=== PATIENT | female | born 1935 | race Caucasian/White ===

== ENCOUNTER 2016-08-26 10:29 | Observation (INO) | payer OTHER ==
[2016-08-26] VITALS (17 sets, daily range): BP systolic 131–181; BP diastolic 62–99; PULSE 42–123; RESP 16–20; TEMP 98.3–98.6; O2SAT 92–99
[~2016-08-26] VITALS: Ht 167.6 cm; Wt 84.5 kg
[2016-08-26] MEDS ORDERED: SODIUM CHLORIDE 0.9% FLUSH 10 ML FLUSH IVF PRN (11:15)
[2016-08-26] MEDS ORDERED: DILTIAZEM HCL 25 MG/5 ML VIAL IV ONE (11:15)
[2016-08-26] MEDS ORDERED: MAGN1TAB14 PO (11:34)
[2016-08-26] MEDS ORDERED: CHOL20005 PO (11:34)
[2016-08-26] MEDS ORDERED: LUTE6CAP2 PO (11:34)
[2016-08-26] MEDS ORDERED: CETI10 PO (11:34)
[2016-08-26] MEDS ORDERED: LISI10TA3 PO (11:34)
[2016-08-26] MEDS ORDERED: LACTCAP8 PO (11:34)
[2016-08-26] MEDS ORDERED: OMEP20TA PO (11:34)
[2016-08-26] MEDS ORDERED: COQ-30CA2 (11:34)
[2016-08-26] MEDS ORDERED: LEXA10TA PO (11:34)
[2016-08-26 11:47] LABS: AUTOMATED NEUTROPHIL # 7.3 TH/MM3 (1.8-7.7); BASOPHIL % 0.5 % (0.0-2.0); EOSINOPHIL # 0.1 TH/MM3 (0-0.4); EOSINOPHIL % 0.7 % (0.0-4.0); HEMATOCRIT 37.5 % (35.0-46.0); HEMO FLAGS DIFF FINAL; LYMPHOCYTE # 0.9 TH/MM3 (1.0-4.8); MEAN CELL VOLUME 78.8 FL (80.0-100.0); MEAN CORPUSCULAR HEMOGLOBIN 25.9 PG (27.0-34.0); MEAN CORPUSCULAR HGB CONC 32.9 % (32.0-36.0); MONO % 7.7 % (0.0-8.0); NEUT % 81.1 % (16.0-70.0); PLATELET COUNT 285 TH/MM3 (150-450); RED BLOOD COUNT 4.76 MIL/MM3 (4.00-5.30); RED CELL DISTRIBUTION WIDTH 16.9 % (11.6-17.2); WHITE BLOOD COUNT 9.1 TH/MM3 (4.0-11.0)
[2016-08-26 11:48] LABS: BICARBONATE 28.3 MEQ/L (21.0-32.0); POTASSIUM 4.1 MEQ/L (3.5-5.1)
[2016-08-26 11:56] LABS: APTT (PATIENT) 25.8 SEC (24.3-30.1); PROTHROMBIN TIME - PATIENT 10.5 SEC (9.8-11.6)
--- NOTE | 2016-08-26 11:57 | PD ---
HPI Chief Complaint: Cardiac Complaint Time Seen by Provider: 11:04 Travel History International Travel<30 days: No Contact w/Intl Traveler<30days: No Traveled to known affect area: No History of Present Illness HPI 81 y/o female presents for new onset atrial fibrillation with tachycardic rate. She states that she went to her routine yearly physical when they found this. She states that incidentally she had a trip and fall yesterday and has a bump to her right forehead and right knee. She states she's also having right sided chest pain from where she hit. She denies any other concurrent complaints. She states that she is on no blood thinner medication. She states the fall was from standing. She states that she doesn't think she blacked out. [facility] She states she used to be on metoprolol but they switched it to a different medication and she's not sure which one PFSH Past Medical History Anxiety: Yes Cardiovascular Problems: Yes High Cholesterol: Yes Diabetes: No Hypertension: Yes Sleep Apnea: Yes Tetanus Vaccination: < 5 Years Influenza Vaccination: Yes Past Surgical History Hysterectomy: Yes Joint Replacement: Yes (R KNEE REPLACEMENT) Tonsillectomy: Yes Other Surgery: Yes (THROAT POLYPS) Social History Alcohol Use: Yes (OCCAS) Tobacco Use: No Substance Use: No Allergies-Medications (Allergen,Severity, Reaction): Coded Allergies: Penicillin (Verified Allergy, Severe, HIVES, 08/26/16) Reported Meds & Prescriptions Reported Meds & Active Scripts Active Reported Lexapro (Escitalopram Oxalate) 10 Mg Tab 10 Mg PO DAILY Lisinopril 10 Mg Tab 10 Mg PO DAILY Probiotic (Lactobacillus Acidophilus) 1 Cap Cap 1 Cap PO DAILY Omeprazole 20 Mg Tab 20 Mg PO DAILY Magnesium 400 Mg Tab 500 Mg PO DAILY Lutein 6 Mg Cap 6 Mg PO DAILY Coq-10 (Coenzyme Q10 (Ubidecarenone)) 30 Mg Cap D3 Super Strength (Cholecalciferol) 2,000 Unit Cap 2,000 Units PO DAILY Cetirizine (Cetirizine HCl) 10 Mg Tab 10 Mg PO DAILY Review of Systems Except as stated in HPI: all other systems reviewed are Neg Physical Exam Narrative GENERAL: Well-nourished, well-developed patient. SKIN: Warm and dry. HEAD: Normocephalic and bruise noted to right forehead Chest wall: Tender right lateral lower chest wall EYES: No injection or drainage. ENT: No nasal drainage noted. NECK: Supple, trachea midline. nttp in midline CARDIOVASCULAR: irregular rate and rhythm RESPIRATORY: Breath sounds equal bilaterally at apices. No accessory muscle use. GASTROINTESTINAL: Abdomen soft, non-tender, nondistended. EXTREMITIES: No edema.Pain with palpation of right knee, no pain with other joints , neurovascularly intact, no lacerations over, compartments soft. NEUROLOGICAL: Awake and alert. Motor and sensory grossly within normal limits. Normal speech. Data Data Last Documented VS Vital Signs Date Time Temp Pulse Resp B/P Pulse Ox O2 Delivery O2 Flow Rate FiO2 08/26/16 11:10 18 95 Room Air 08/26/16 11:02 121 162/85 08/26/16 10:58 98.3 Orders Electrocardiogram (08/26/16 ) Basic Metabolic Panel (Bmp) (08/26/16 11:07) Complete Blood Count With Diff (08/26/16 11:07) Prothrombin Time / Inr (Pt) (08/26/16 11:07) Act Partial Throm Time (Ptt) (08/26/16 11:07) Type And Screen (08/26/16 11:07) Chest, Single Ap (08/26/16 11:07) Pelvis, Ap Only (Routine) (08/26/16 11:07) Ct Brain W/O Iv Contrast(Rout) (08/26/16 11:07) Iv Access Insert/Monitor (08/26/16 11:07) Ecg Monitoring (08/26/16 11:07) Oximetry (08/26/16 11:07) Sodium Chloride 0.9% Flush (Ns Flush) (08/26/16 11:15) Knee, Complete (4vws) (08/26/16 ) Thyroid Stimulating Hormone (08/26/16 11:07) Diltiazem Inj (Cardizem Inj) (08/26/16 11:15) Diltiazem Inj (Cardizem Inj) (08/26/16 12:00) Admit Order (Ed Use Only) (08/26/16 13:26) Labs Laboratory Tests Test 08/26/16 11:15 White Blood Count 9.1 TH/MM3 Red Blood Count 4.76 MIL/MM3 Hemoglobin 12.3 GM/DL Hematocrit 37.5 % Mean Corpuscular Volume 78.8 FL Mean Corpuscular Hemoglobin 25.9 PG Mean Corpuscular Hemoglobin 32.9 % Concent Red Cell Distribution Width 16.9 % Platelet Count 285 TH/MM3 Mean Platelet Volume 8.0 FL Neutrophils (%) (Auto) 81.1 % Lymphocytes (%) (Auto) 10.0 % Monocytes (%) (Auto) 7.7 % Eosinophils (%) (Auto) 0.7 % Basophils (%) (Auto) 0.5 % Neutrophils # (Auto) 7.3 TH/MM3 Lymphocytes # (Auto) 0.9 TH/MM3 Monocytes # (Auto) 0.7 TH/MM3 Eosinophils # (Auto) 0.1 TH/MM3 Basophils # (Auto) 0.0 TH/MM3 CBC Comment DIFF FINAL Differential Comment Prothrombin Time 10.5 SEC Prothromb Time International 1.0 RATIO Ratio Activated Partial 25.8 SEC Thromboplast Time Sodium Level 141 MEQ/L Potassium Level 4.1 MEQ/L Chloride Level 107 MEQ/L Carbon Dioxide Level 28.3 MEQ/L Anion Gap 6 MEQ/L Blood Urea Nitrogen 15 MG/DL Creatinine 0.90 MG/DL Estimat Glomerular Filtration 60 ML/MIN Rate Random Glucose 113 MG/DL Calcium Level 9.3 MG/DL Thyroid Stimulating Hormone 0.719 uIU/ML 3rd Gen Blood Type O POSITIVE Antibody Screen NEGATIVE Blood Bank Comment MDM Medical Decision Making Medical Screen Exam Complete: Yes Emergency Medical Condition: Yes Medical Record Reviewed: Yes (pmh confirmed) Interpretation(s) CBC & BMP Diagram 08/26/16 11:15 EKG shows atrial fibrillation in the 120s without STEMI criteria or consecutive T-wave inversion Last 24 hours Impressions Pelvis X-Ray 08/26/161106 Signed Impressions: Service Date/Time: Friday, August 26, 2016 12:22 - CONCLUSION: No acute disease. Juan Carlos Dobson Jr., MD Head CT 08/26/161106 Signed Impressions: Service Date/Time: Friday, August 26, 2016 11:46 - CONCLUSION: Normal examination for a patient of this age. Artur Batista MD Chest X-Ray 08/26/161106 Signed Impressions: Service Date/Time: Friday, August 26, 2016 12:17 - CONCLUSION: Mild cardiomegaly. Clear lungs. Juan Carlos Dobson Jr., MD Knee X-Ray 08/26/16 0000 Signed Impressions: Service Date/Time: Friday, August 26, 2016 12:23 - CONCLUSION: Total hip prosthesis without acute abnormality. Juan Carlos Dobson Jr., MD Differential Diagnosis Atrial fibrillation with RVR, SVT with aberrancy, a flutter, electrolyte abnormality, strain, sprain, bleed Narrative Course Will check blood work, chest x-ray, CT brain, knee x-ray and dose of Cardizem and reevaluate Cardizem has controlled rate Will place on drip to continue to keep rate controlled Rate has improved, patient updated and agrees to admission Critical Care Narrative Aggregate critical care time was 31 minutes. Time to perform other separately billable procedures was not included in the critical care time. My time did not include minutes spent treating any other patients simultaneously or on activities that did not directly contribute to the patient's treatment. The services I provided to this patient were to treat and/or prevent clinically significant deterioration that could result in: Hypotension, persistent tachycardia I provided critical care services requiring my management, as noted below: Chart data review, documentation time, medication orders and management, vital sign assessments/reviewing monitor data, ordering and reviewing lab tests, ordering and interpreting/reviewing x-rays and diagnostic studies, care of the patient and discussion of the patient with the admitting physicians. Physician Communication Physician Communication dr blue agrees to admit Diagnosis Primary Impression: Atrial fibrillation with RVR Additional Impression: Fall Qualified Code: W19.XXXA - Fall, initial encounter Admitting Information Admitting Physician Requests: Admit Annalisa Cole MD Aug 26, 2016 11:57
[2016-08-26] MEDS ORDERED: DILTIAZEM INJ 125 MG in SODIUM CHLORIDE 0.9% INJ 100 ML IV SCH (12:00)
--- NOTE | 2016-08-26 12:42 | RADRPT ---
EXAM DATE/TIME: 08/26/2016 12:17 [facility] COMPARISON: No previous studies available for comparison. INDICATIONS : Palpitations. MEDICAL HISTORY : None. SURGICAL HISTORY : None. ENCOUNTER: Initial ACUITY: 1 day PAIN SCORE: 0/10 LOCATION: Bilateral chest FINDINGS: A single view of the chest demonstrates the lungs to be symmetrically aerated without evidence of mas s, infiltrate or effusion. Mild cardiomegaly.. Osseous structures are intact. CONCLUSION: Mild cardiomegaly. Clear lungs. Juan Carlos Dobson Jr., MD on August 26, 2016 at 12:40 Board Certified Radiologist. This report was verified electronically.
--- NOTE | 2016-08-26 12:47 | RADRPT ---
EXAM DATE/TIME: 08/26/2016 12:22 [facility] COMPARISON: No previous studies available for comparison. INDICATIONS : Pelvic pain, fall. MEDICAL HISTORY : None. SURGICAL HISTORY : None. ENCOUNTER: Initial ACUITY: 2 days PAIN SCORE: 8/10 LOCATION: Right hip FINDINGS: A single frontal view of the pelvis demonstrates no evidence of fracture. The bony pelvic ring is in tact. Bony mineralization is normal. The soft tissues are intact. CONCLUSION: No acute disease. Juan Carlos Dobson Jr., MD on August 26, 2016 at 12:40 Board Certified Radiologist. This report was verified electronically.
--- NOTE | 2016-08-26 12:48 | RADRPT ---
EXAM DATE/TIME: 08/26/2016 12:23 [facility] COMPARISON: No previous studies available for comparison. INDICATIONS : Right knee pain, fall. MEDICAL HISTORY : None. SURGICAL HISTORY : Total knee replacement, right. ENCOUNTER: Initial ACUITY: 2 days PAIN SCORE: 8/10 LOCATION: Right lateral knee FINDINGS: 4 views of the knee reveal a total knee prosthesis in good position. No fracture or dislocation. No j oint effusion. Spurring of the patella. Atherosclerotic changes involving the popliteal artery. CONCLUSION: Total hip prosthesis without acute abnormality. Juan Carlos Dobson Jr., MD on August 26, 2016 at 12:45 Board Certified Radiologist. This report was verified electronically.
--- NOTE | 2016-08-26 12:48 | RADRPT ---
EXAM DATE/TIME: 08/26/2016 11:46 [facility] COMPARISON: No previous studies available for comparison. INDICATIONS : Traum; pt fell one day ago, striking head RADIATION DOSE: 36.35 CTDIvol (mGy) MEDICAL HISTORY : Hypertension. Cardiac SURGICAL HISTORY : Hysterectomy. ENCOUNTER: Initial ACUITY: 1 day PAIN SCALE: 4/10 LOCATION: cranial TECHNIQUE: Multiple contiguous axial images were obtained of the head. Using automated exposure control and adj ustment of the mA and/or kV according to patient size, radiation dose was kept as low as reasonably a chievable to obtain optimal diagnostic quality images. FINDINGS: CEREBRUM: The ventricles are normal for age. No evidence of midline shift, mass lesion, hemorrhage or acute in farction. No extra-axial fluid collections are seen. POSTERIOR FOSSA: The cerebellum and brainstem are intact. The 4th ventricle is midline. The cerebellopontine angle i s unremarkable. EXTRACRANIAL: The visualized portion of the orbits is intact. SKULL: The calvaria is intact. No evidence of skull fracture. CONCLUSION: Normal examination for a patient of this age. Artur Batista MD on August 26, 2016 at 12:45 Board Certified Radiologist. This report was verified electronically.
[2016-08-26] MEDS ORDERED: TRAM50TA PO (15:59)
[2016-08-26] MEDS: LISINOPRIL 10 MG TAB PO SCH (16:15)
[2016-08-26] MEDS ORDERED: traMADol HCL 50 MG TAB PO PRN (16:15)
[2016-08-26] MEDS: ESCITALOPRAM OXALATE 10 MG TAB PO SCH (16:15)
[2016-08-26] MEDS ORDERED: ENALAPRILAT 1.25 MG/ML VIAL IV PUSH PRN (18:15)
--- NOTE | 2016-08-26 18:17 | HHI.HP ---
[facility]Staff Admission Diagnosis afib with rvr Diagnoses: Chief Complaint: New onset atrial fibrillation Travel History International Travel<30 Days: No Contact w/Intl Traveler <30 Da: No Traveled to Known Affected Are: No History of Present Illness Patient is a very pleasant 81-year-old female with history of hypertension, still very active lifestyle and independent quality of life, , with history generalized anxiety disorder who this morning went to [place] for his annual physical checkup when on evaluation noted a heart rate was elevated and was noted to be in rapid atrial fibrillation. Patient was basically asymptomatic except for some "queasy feeling in the stomach" . Incidentally patient fell last night - tripped on something on the ground. complained of pain right side of the body and hip her hand and knee. Denies any syncopal episodes dizziness chest pain shortness of breath prior to or after the episode. Patient was sent over here where an EKG confirms atrial fibrillation in RVR. With right bundle branch block. Patient was given Cardizem bolus and started on a drip of 15 mg per hour and patient spontaneously went into sinus rhythm. admitted for further evaluation On telemetry Heart rate was noted to be be in the 40s and 50s a fib - some strip into SR - then with interrmittent slow A. fib. We will discontinue drip and admit for further evaluation and observation management. No history of GI bleeding. or spontaenous bleed, no history of CVA, GIB No chest pains or shortness of breath Review of Systems Constitutional: DENIES: Fever, Weight loss, Chills, Change in appetite Eyes: DENIES: Blurred vision, Double Vision Ears, nose, mouth, throat: DENIES: Tinnitus, Ear Pain, Epistaxis, Odynophagia Respiratory: DENIES: Cough, Hemoptysis, Sputum production, Shortness of breath Cardiovascular: DENIES: Chest pain, Palpitations, Dyspnea on Exertion, Lower Extremity Edema, Orthopnea Gastrointestinal: DENIES: Black stools, Bloody stools, Difficulty Swallowing, Anorexia Genitourinary: DENIES: Urgency, Hematuria, Vaginal discharge Musculoskeletal: DENIES: Joint pain, Stiffness Integumentary: DENIES: Pruritus Hematologic/lymphatic: DENIES: Bruising Immunologic/allergic: DENIES: Urticaria Neurologic: DENIES: Headache, Speech Problems, Tremor Psychiatric: DENIES: Suicidal Ideation, Homicidal Ideation Past Family Social History Past Medical History Hypertension Generalized anxiety disorder Allergies: Coded Allergies: Penicillin (Verified Allergy, Severe, HIVES, 08/26/16) Physical Exam Vital Signs Vital Signs Date Time Temp Pulse Resp B/P Pulse Ox O2 Delivery O2 Flow Rate FiO2 08/26/16 18:11 73 08/26/16 17:00 42 08/26/16 17:00 73 18 152/92 97 08/26/16 15:38 113 18 134/99 97 Nasal Cannula 2 08/26/16 14:36 123 18 98 Nasal Cannula 2 08/26/16 14:10 113 18 148/75 96 Nasal Cannula 2 08/26/16 13:29 123 18 181/97 96 Nasal Cannula 2 08/26/16 11:10 18 95 Room Air 08/26/16 11:02 121 18 162/85 95 Room Air 08/26/16 11:02 138 20 95 Room Air 08/26/16 10:58 98.3 119 20 162/85 95 Physical Exam GENERAL: This is a well-nourished, well-developed patient, in no apparent distress. SKIN: No rashes, ecchymoses or lesions. Cool and dry. HEAD: Atraumatic. Normocephalic. No temporal or scalp tenderness. EYES: Pupils equal round and reactive. Extraocular motions intact. No scleral icterus. No injection or drainage. ENT: Nose without bleeding, purulent drainage or septal hematoma. Throat without erythema, tonsillar hypertrophy or exudate. Uvula midline. Airway patent. NECK: Trachea midline. No JVD or lymphadenopathy. Supple, nontender, no meningeal signs. CARDIOVASCULAR: Irregular rhythm- rate 50, no gallops, or rubs. No murmur RESPIRATORY: Clear to auscultation. Breath sounds equal bilaterally. No wheezes , rales, or rhonchi. GASTROINTESTINAL: Abdomen soft, non-tender, nondistended. No hepato-splenomegaly , or palpable masses. No guarding. MUSCULOSKELETAL: Extremities without clubbing, cyanosis, or edema. No joint tenderness, effusion, or edema noted. No calf tenderness. Negative Homans sign bilaterally. NEUROLOGICAL: Awake and alert. Cranial nerves II through XII intact. Motor and sensory grossly within normal limits. Five out of 5 muscle strength in all muscle groups. Normal speech. Laboratory Laboratory Tests Test 08/26/16 11:15 White Blood Count 9.1 Red Blood Count 4.76 Hemoglobin 12.3 Hematocrit 37.5 Mean Corpuscular Volume 78.8 Mean Corpuscular Hemoglobin 25.9 Mean Corpuscular Hemoglobin 32.9 Concent Red Cell Distribution Width 16.9 Platelet Count 285 Mean Platelet Volume 8.0 Neutrophils (%) (Auto) 81.1 Lymphocytes (%) (Auto) 10.0 Monocytes (%) (Auto) 7.7 Eosinophils (%) (Auto) 0.7 Basophils (%) (Auto) 0.5 Neutrophils # (Auto) 7.3 Lymphocytes # (Auto) 0.9 Monocytes # (Auto) 0.7 Eosinophils # (Auto) 0.1 Basophils # (Auto) 0.0 CBC Comment DIFF FINAL Differential Comment Prothrombin Time 10.5 Prothromb Time International 1.0 Ratio Activated Partial 25.8 Thromboplast Time Sodium Level 141 Potassium Level 4.1 Chloride Level 107 Carbon Dioxide Level 28.3 Anion Gap 6 Blood Urea Nitrogen 15 Creatinine 0.90 Estimat Glomerular Filtration 60 Rate Random Glucose 113 Calcium Level 9.3 Thyroid Stimulating Hormone 0.719 3rd Gen Blood Type O POSITIVE Antibody Screen NEGATIVE Blood Bank Comment Result Diagram: 08/26/16 1115 08/26/16 1115 Imaging Last Impressions Pelvis X-Ray 08/26/167 Signed Impressions: Service Date/Time: Friday, August 26, 2016 12:22 - CONCLUSION: No acute disease. Juan Carlos Dobson Jr., MD Head CT 08/26/16 1107 Signed Impressions: Service Date/Time: Friday, August 26, 2016 11:46 - CONCLUSION: Normal examination for a patient of this age. Artur Batista MD Chest X-Ray 08/26/167 Signed Impressions: Service Date/Time: Friday, August 26, 2016 12:17 - CONCLUSION: Mild cardiomegaly. Clear lungs. Juan Carlos Dobson Jr., MD Knee X-Ray 08/26/16 0000 Signed Impressions: Service Date/Time: Friday, August 26, 2016 12:23 - CONCLUSION: Total hip prosthesis without acute abnormality. Juan Carlos Dobson Jr., MD Assessment and Plan Assessment and Plan 81-year-old female presenting with 81 years old very active dynamic lady New onset atrial fibrillation now with intermittent A. fib = -goes into sinus rhythm occasional pauses -heart rate ranging from 40s to 60s-- Discontinued Cardizem drip. - restart if HR higher than 100 consistently Monitor in telemetry. TSH normal. Check a 2-D echo. Order for 24-hour Holter Cardiology consult- work up ? EPS vs need for ischemic work up - RAULITO- score + HTN, age - 2. choice of OAC . unable to tolerate ASA per patient Start Heparin drip for now CXR, EKGs reviewed. Repeat EKG- sinus with pauses, bradycardia History of hypertension. Continue lisinopril 10 mg by mouth daily. IV Vasotec when necessary for SBP >160 Status post fall with right rib cage pain- tender. get ribs XRays .. Incentive spirometry hourly History of generalized anxiety disorder. Continue on Lexapro 50 mg every morning Ativan at bedtime when necessary. History of OA-Chronic OA pain on Meloxicam/Tramadaol as OP. Ultracet prn here [facility]- BiPAP- consult RT for BIPAP use HS. no family member who can bring his home machine for use here. Physician Certification 2 Midnight Certification Type: Admission for Inpatient Services Order for Inpatient Services The services are ordered in accordance with Medicare regulations or non- Medicare payer requirements, as applicable. In the case of services not specified as inpatient-only, they are appropriately provided as inpatient services in accordance with the 2-midnight benchmark. Estimated LOS (days): 3 days is the estimated time the patient will need to remain in the hospital, assuming treatment plan goals are met and no additional complications. Post-Hospital Plan: Not yet determined Kassy Meadows MD Aug 26, 2016 18:17
[2016-08-26] MEDS ORDERED: DILTIAZEM INJ 125 MG in SODIUM CHLORIDE 0.9% INJ 100 ML IV PRN (18:45)
[2016-08-26] MEDS ORDERED: LORazepam 0.5 MG TAB PO PRN (19:00)
[2016-08-26] MEDS ORDERED: HEPARIN-D5W INJ 250 ML IV SCH (19:15)
[2016-08-26 20:14] LABS: PROTHROMBIN TIME - PATIENT 10.7 SEC (9.8-11.6)
[2016-08-26 20:16] LABS: HEMATOCRIT 35.6 % (35.0-46.0); MEAN CORPUSCULAR HEMOGLOBIN 25.5 PG (27.0-34.0); MEAN CORPUSCULAR HGB CONC 32.3 % (32.0-36.0); PLATELET COUNT 259 TH/MM3 (150-450); RED BLOOD COUNT 4.51 MIL/MM3 (4.00-5.30); RED CELL DISTRIBUTION WIDTH 16.9 % (11.6-17.2); REVIEW FLAG FINAL
[2016-08-26] MEDS ORDERED: ATROPINE SULFATE 1 MG/10 ML SYRINGE ONE (20:42)
[2016-08-26] MEDS ORDERED: EPINEPHrine HCL (1:10,000) 1 MG/10 ML SYRINGE ONE (20:43)
--- NOTE | 2016-08-26 21:47 | RADRPT ---
EXAM DATE/TIME: 08/26/2016 21:02 [facility] COMPARISON: No previous studies available for comparison. INDICATIONS : Right sided rib pain after fall last night. MEDICAL HISTORY : None. SURGICAL HISTORY : None. ENCOUNTER: Initial ACUITY: 2 days PAIN SCORE: 8/10 LOCATION: Right Ribs FINDINGS: Multiple views of the right ribs were performed. There is no evidence of displaced fracture. No de structive lesions or areas of periosteal thickening are seen. CONCLUSION: Negative exam with no visualized rib fracture or pneumothorax. Maximus Vazquez MD on August 26, 2016 at 21:44 Board Certified Radiologist. This report was verified electronically.
[2016-08-26] MEDS: MAGNESIUM OXIDE 400 MG TAB PO SCH (22:04)
[2016-08-26 22:15] LABS: AMPHETAMINE, URINE NEG (NEG); BARBITURATES, URINE NEG (NEG); COCAINE, URINE NEG (NEG)
[2016-08-26] MEDS: traMADol/ACETAMINOPHEN 37.5/325 1 TAB PO PRN (23:20)
[2016-08-27] VITALS (30 sets, daily range): BP systolic 135–156; BP diastolic 73–88; PULSE 54–82; RESP 16–20; TEMP 97.4–98.7; O2SAT 89–97
[2016-08-27] MEDS: traMADol/ACETAMINOPHEN 37.5/325 1 TAB PO PRN ×4 (06:22→23:01)
[2016-08-27 06:56] LABS: APTT (PATIENT) 38.3 SEC (24.3-30.1)
[2016-08-27 07:10] LABS: ANION GAP 8 MEQ/L (5-15); AST (GOT) 13 U/L (15-37); BICARBONATE 27.7 MEQ/L (21.0-32.0); BLOOD UREA NITROGEN 19 MG/DL (7-18); CHLORIDE 105 MEQ/L (98-107); GLOMERULAR FILTRATION RATE 70 ML/MIN (>89); POTASSIUM 3.5 MEQ/L (3.5-5.1); SODIUM (NA) 141 MEQ/L (136-145)
[2016-08-27 07:18] LABS: ALKALINE PHOSPHATASE 70 U/L (45-117); ALT (GPT) 14 U/L (10-53); TOTAL BILIRUBIN ADULT 0.4 MG/DL (0.2-1.0)
[2016-08-27] MEDS: CHOLECALCIFEROL (VIT D3) 1000 UNIT TAB PO SCH (09:00)
[2016-08-27] MEDS: PANTOPRAZOLE SOD 20 MG DELAYED RELEASE TAB PO SCH (09:00)
[2016-08-27] MEDS: CETIRIZINE HCL 10 MG TAB PO SCH (09:00)
[2016-08-27] MEDS: ESCITALOPRAM OXALATE 10 MG TAB PO SCH (09:00)
[2016-08-27] MEDS ORDERED: NON-FORMULARY DRUG (Lutein 6 MG) PO SCH (09:00)
[2016-08-27] MEDS: LISINOPRIL 10 MG TAB PO SCH (09:00)
[2016-08-27] MEDS: MAGNESIUM OXIDE 400 MG TAB PO SCH ×2 (09:00→23:03)
[2016-08-27] MEDS: LACTOBACILLUS ACIDOPHILUS TAB PO SCH (09:00)
--- NOTE | 2016-08-27 11:03 | HHI.PR ---
Subjective Remarks Pt tells me that she never had atrial fib in the past. she had no symptoms whatsoever when she went to see her physician. currently denies any CP/SOB/ palpitation/n/v. Pt did fall on the right and has pain along the right ribs. Tramadol is helping. She is not on any blood thinners at home. she is hopeful to go home later today if possible. Tells me she has a hx of sleep apnea Objective Vitals Vital Signs Date Time Temp Pulse Resp B/P Pulse Ox O2 Delivery O2 Flow Rate FiO2 08/27/16 10:37 97 21 08/27/16 08:00 97.6 66 20 154/88 95 08/27/16 06:00 55 08/27/16 05:00 57 08/27/16 04:00 58 08/27/16 03:20 97 Bi-Pap 21 08/27/16 03:20 97.8 58 16 141/80 97 08/27/16 03:01 97 21 08/27/16 03:00 56 08/27/16 02:00 54 08/27/16 01:00 58 08/27/16 00:00 62 08/26/16 23:20 96 Bi-Pap 21 08/26/16 23:20 98.4 68 16 131/62 96 08/26/16 23:00 62 08/26/16 22:36 92 21 08/26/16 22:00 66 08/26/16 21:00 72 08/26/16 20:00 64 08/26/16 19:20 98.6 69 18 138/67 99 08/26/16 19:20 99 Room Air 08/26/16 19:00 73 08/26/16 18:11 73 08/26/16 17:00 42 08/26/16 17:00 73 18 152/92 97 08/26/16 15:38 113 18 134/99 97 Nasal Cannula 2 08/26/16 14:36 123 18 98 Nasal Cannula 2 08/26/16 14:10 113 18 148/75 96 Nasal Cannula 2 08/26/16 13:29 123 18 181/97 96 Nasal Cannula 2 08/26/16 11:10 18 95 Room Air 08/26/16 11:02 121 18 162/85 95 Room Air 08/26/16 11:02 138 20 95 Room Air I/O 08/26/16 08/26/16 08/26/16 08/27/16 08/27/16 08/27/16 07:00 15:00 23:00 07:00 15:00 23:00 Intake Total 306 ml Output Total 500 ml Balance -194 ml Intake Oral 240 ml IV Total 66 ml Output Urine Total 500 ml # Bowel Movements 0 Result Diagram: 08/26/16 1948 08/27/16 0445 Imaging Last Impressions Pelvis X-Ray 08/26/161106 Signed Impressions: Service Date/Time: Friday, August 26, 2016 12:22 - CONCLUSION: No acute disease. Juan Carlos Dobson Jr., MD Head CT 08/26/161106 Signed Impressions: Service Date/Time: Friday, August 26, 2016 11:46 - CONCLUSION: Normal examination for a patient of this age. Artur Batista MD Chest X-Ray 08/26/161106 Signed Impressions: Service Date/Time: Friday, August 26, 2016 12:17 - CONCLUSION: Mild cardiomegaly. Clear lungs. Juan Carlos Dobson Jr., MD Ribs X-Ray 08/26/16 0000 Signed Impressions: Service Date/Time: Friday, August 26, 2016 21:02 - CONCLUSION: Negative exam with no visualized rib fracture or pneumothorax. Maximus Vazquez MD Knee X-Ray 08/26/16 0000 Signed Impressions: Service Date/Time: Friday, August 26, 2016 12:23 - CONCLUSION: Total hip prosthesis without acute abnormality. Juan Carlos Dobson Jr., MD Objective Remarks GENERAL: This is a well-nourished, well-developed patient, in no apparent distress. CARDIOVASCULAR: sound regular rate and rhythm no murmurs on exam. RESPIRATORY: Clear to auscultation. Breath sounds equal bilaterally. No wheezes , reproducible pain w palpation on the right side of chest. GASTROINTESTINAL: Abdomen soft, non-tender, nondistended. No hepato-splenomegaly , or palpable masses. No guarding. MUSCULOSKELETAL: Extremities without edema. NEUROLOGICAL: Awake and alert. Cranial nerves II through XII intact. Motor and sensory grossly within normal limits. Normal speech. A/P Assessment and Plan 81-year-old female presenting with 81 years old very active dynamic lady New onset atrial fibrillation now with intermittent A. fib = -goes into sinus rhythm occasional pauses -heart rate ranging from 50s to 60s-- off Cardizem drip. - restart if HR higher than 100 consistently Monitor in telemetry. TSH normal. 2-D echo completed but report not yet available. on 24-hour Holter Cardiology consult- work up ? EPS vs need for ischemic work up - RAULITO- score + HTN, age - 2. choice of OAC . unable to tolerate ASA per patient on Heparin drip for now CXR, EKGs reviewed. reviewed TELE, appears to be normal sinus History of hypertension. BPs elevated, increase lisinopril 20 mg by mouth daily. IV Vasotec when necessary for SBP >160. hold off on starting BB due to bradycardia Status post fall with right rib cage pain- tender. xrays of rib neg for pneumothorax or rib fx. Encouraged use Incentive spirometry hourly and ordered IS History of generalized anxiety disorder. Continue on Lexapro 50 mg every morning Ativan at bedtime when necessary. History of OA-Chronic OA pain on Meloxicam/Tramadaol as OP. Ultracet prn here [facility]- BiPAP- consult RT for BIPAP use HS. Discharge Planning cards consult pending. awaiting Sandee Mcfadden MD Aug 27, 2016 11:03
--- NOTE | 2016-08-27 11:14 | ECHRPT ---
Indication: Persistent atrial fibrillation CONCLUSIONS Normal left ventricular size. Mild concentric left ventricular hypertrophy. The left ventricular sys tolic function is normal with an estimated ejection fraction in the range of 60-65%. No regional wall juan alberto on abnormalities are present. Mild aortic valve regurgitation. BP: 181 / 97 HR: 123 Rhythm: Sinus MEASUREMENTS (Male / Female) Normal Values Technical Quality:Good 2D ECHO LV Diastolic Diameter PLAX 4.3 cm 4.2 - 5.9 / 3.9 - 5.3 cm LV Systolic Diameter PLAX 2.7 cm IVS Diastolic Thickness 1.5 cm 0.6 - 1.0 / 0.6 - 0.9 cm LVPW Diastolic Thickness 1.5 cm 0.6 - 1.0 / 0.6 - 0.9 cm LV Relative Wall Thickness 0.7 RV Internal Dim ED PLAX 2.6 cm LVOT Diameter 2.0 cm LA Systolic Diameter LX 4.4 cm 3.0 - 4.0 / 2.7 - 3.8 cm DOPPLER AV Peak Velocity 182.0 cm/s AV Peak Gradient 13.2 mmHg AI Peak Velocity 297.0 cm/s AI Peak Gradient 35.3 mmHg AI Pressure Half Time 690.0 ms LVOT Peak Velocity 126.0 cm/s LVOT Peak Gradient 6.4 mmHg AV Area Cont Eq pk 2.2 cm MV Area PHT 3.3 cm Mitral E Point Velocity 95.8 cm/s Mitral A Point Velocity 97.7 cm/s Mitral E to A Ratio 1.0 LV E' Lateral Velocity 8.6 cm/s Mitral E to LV E' Lateral Ratio 11.2 LV E' Septal Velocity 5.9 cm/s Mitral E to LV E' Septal Ratio 16.4 TV Peak Velocity 295.0 cm/s PV Peak Velocity 110.0 cm/s PV Peak Gradient 4.8 mmHg FINDINGS Left Ventricle Normal left ventricular size. Mild concentric left ventricular hypertrophy. The left ventricular sys tolic function is normal with an estimated ejection fraction in the range of 60-65%. No regional wall juan alberto on abnormalities are present. Right Ventricle Normal right ventricular size and systolic function. Left Atrium The left atrial size is mildly dilated. Right Atrium The right atrial size is normal. Atrial Septum Normal atrial septal thickness without atrial level shunting by limited color doppler interrogation. Aorta The aortic root and proximal ascending aorta are normal in size on limited imaging. Mitral Valve Structurally normal mitral valve. No mitral valve stenosis or regurgitation. Aortic Valve Trileaflet aortic valve. Mild aortic valve regurgitation. No aortic valve stenosis. Tricuspid Valve Structurally normal tricuspid valve. There is mild tricuspid valve regurgitation. No tricuspid valve stenosis. Pulmonary arterial systolic pressure could not be estimated due to an insufficient tricuspid valve regurgitation doppler jet for measurement. Pulmonary Valve The pulmonary valve is not well visualized. Vessels The inferior vena cava is normal in size. Pericardium No pericardial effusion. Bharathi Giraldo MD, FACC (Electronically Signed) Final Date:27 August 2016 11:13
[2016-08-27] MEDS ORDERED: LISINOPRIL 10 MG TAB PO ONE (11:15)
--- NOTE | 2016-08-27 13:26 | MB ---
cc: TEQUILA ANDERSON DATE OF CONSULTATION: 08/27/2016 HISTORY OF PRESENT ILLNESS Ms. Harrell is an 81-year-old white female with a history of hypertension, but no previous cardiac history. She was seen at the [facility] this morning and was found to be in atrial fibrillation with rapid ventricular response. She has had mild nausea but has not had any chest pain, shortness of breath, palpitations or peripheral edema. She was started on IV diltiazem for rate control and eventually spontaneously converted to sinus rhythm. She was started on IV heparin. PAST MEDICAL HISTORY 1. Hypertension. 2. Anxiety. No history of diabetes, dyslipidemia, coronary artery disease, or CVA. MEDICATIONS 1. Lisinopril. 2. Zyrtec. 3. Vitamin-D. 4. Lactinex. 5. Protonix. 6. IV heparin. 7. Magnesium oxide. ALLERGIES PENICILLIN. SOCIAL HISTORY The patient quit smoking in the . She drinks wine on a regular basis. FAMILY HISTORY Negative for heart disease. REVIEW OF SYSTEMS Otherwise negative. PHYSICAL EXAMINATION VITAL SIGNS: Blood pressure 154/88, pulse 66 and regular. HEENT: Negative. NECK: 2+ carotid upstrokes. No bruits. LUNGS: Clear. HEART: Regular with no murmur, gallop or rub. ABDOMEN: Soft. No bruit. EXTREMITIES: Without edema. 2+ distal pulses. NEUROLOGIC: Grossly nonfocal. EKG EKG was reviewed and showed atrial fibrillation with rapid ventricular response, borderline right axis and right bundle branch block, no acute changes. LABORATORY Hemoglobin 11.5. Potassium 3.5 Creatinine 0.8. AST and ALT normal. ECHOCARDIOGRAM Echocardiogram revealed preserved left ventricular systolic function, mild LVH and mild aortic insufficiency. DIAGNOSIS 1. Atrial fibrillation with rapid ventricular response. 2. Hypertension. 3. Preserved left ventricular systolic function. DISPOSITION Ms. Harrell spontaneously converted to sinus rhythm. Her risk of stroke is increased given her age and her history of hypertension. I recommend to start her on full anticoagulation at this time. We will start Xarelto 20 mg a day and discontinue her IV heparin. She will be monitored on telemetry. She was strongly encouraged to avoid alcohol, which may be contributing to her atrial fibrillation. I will follow her for cardiology during her hospitalization. She will need cardiology follow-up as an outpatient after discharge. MD KEN Guthrie /1:01 PM /1:19 PM SADIE
[2016-08-27] MEDS: RIVAROXABAN 20 MG TAB PO SCH (13:37)
--- NOTE | 2016-08-27 14:35 | EKG ---
Date Performed: 08/26/2016 Time Performed: 11:10:25 PTAGE: 81 years EKG: ATRIAL FIBRILLATION WITH RAPID VENTRICULAR RESPONSE POSSIBLE INFERIOR MYOCARDIAL INFARCTION RIGHT BUNDLE BRANCH BLOCK ABNORMAL ECG NO PREVIOUS TRACING DOCTOR: Isaias Omalley Interpretating Date/Time 08/27/2016 14:34:35
--- NOTE | 2016-08-27 14:37 | EKG ---
Date Performed: 08/26/2016 Time Performed: 20:14:20 PTAGE: 81 years EKG: Sinus bradycardia with sinus arrhythmia with PAC(s) Right bundle branch block Low QRS volta ges in precordial leads Possible inferior infarct Abnormal ECG PREVIOUS TRACING : 08/26/2016 11.10 Compared to previous tracing, sinus bradycardia has replace d atrial fibrillation with rapid ventricular response. DOCTOR: Isaias Omalley Interpretating Date/Time 08/27/2016 14:35:41
[2016-08-28] VITALS (29 sets, daily range): BP systolic 124–176; BP diastolic 75–99; PULSE 56–148; RESP 16–18; TEMP 97.8–98.7; O2SAT 92–96
[2016-08-28] MEDS: traMADol/ACETAMINOPHEN 37.5/325 1 TAB PO PRN ×5 (03:33→22:33)
[2016-08-28] MEDS: CHOLECALCIFEROL (VIT D3) 1000 UNIT TAB PO SCH (09:02)
[2016-08-28] MEDS: ESCITALOPRAM OXALATE 10 MG TAB PO SCH (09:02)
[2016-08-28] MEDS: LACTOBACILLUS ACIDOPHILUS TAB PO SCH (09:03)
[2016-08-28] MEDS: PANTOPRAZOLE SOD 20 MG DELAYED RELEASE TAB PO SCH (09:03)
[2016-08-28] MEDS: CETIRIZINE HCL 10 MG TAB PO SCH (09:03)
[2016-08-28] MEDS: LISINOPRIL 10 MG TAB PO SCH (09:03)
[2016-08-28] MEDS: MAGNESIUM OXIDE 400 MG TAB PO SCH ×2 (09:03→22:33)
[2016-08-28] MEDS: RIVAROXABAN 20 MG TAB PO SCH (09:04)
--- NOTE | 2016-08-28 12:26 | HHI.PR ---
Subjective Remarks Pt feeling well. denies any CP/palpitations/sob/n/v does have some pain along the right ribs but meds help. Objective Vitals Vital Signs Date Time Temp Pulse Resp B/P Pulse Ox O2 Delivery O2 Flow Rate FiO2 08/28/16 09:57 18 08/28/16 08:00 97.8 67 18 176/82 94 08/28/16 07:10 60 08/28/16 06:00 57 08/28/16 05:00 60 08/28/16 04:00 60 08/28/16 03:20 97.8 61 16 145/82 96 08/28/16 03:20 97 Bi-Pap 08/28/16 03:00 59 08/28/16 02:00 60 08/28/16 01:00 59 08/28/16 00:00 56 08/27/16 23:20 94 Bi-Pap 08/27/16 23:20 97.4 64 18 156/80 94 08/27/16 23:00 64 08/27/16 22:00 58 08/27/16 21:00 64 08/27/16 20:00 70 08/27/16 19:41 97 Nasal Cannula 2.00 08/27/16 19:40 98.6 64 18 135/73 89 08/27/16 19:40 89 Room Air 08/27/16 19:00 68 08/27/16 18:00 71 08/27/16 17:00 68 08/27/16 16:00 64 08/27/16 15:00 98.7 66 20 149/88 95 08/27/16 15:00 60 08/27/16 15:00 95 Bi-Pap 2.00 21 08/27/16 14:00 72 08/27/16 13:00 82 I/O 08/27/16 08/27/16 08/27/16 08/28/16 08/28/16 08/28/16 07:00 15:00 23:00 07:00 15:00 23:00 Intake Total 306 ml 930 ml 480 ml Output Total 500 ml 1250 ml 1100 ml Balance -194 ml -320 ml -620 ml Intake Oral 240 ml 930 ml 480 ml IV Total 66 ml 0 ml Output Urine Total 500 ml 1250 ml 1100 ml # Voids 4 # Bowel Movements 0 0 1 Result Diagram: 08/26/161947 08/27/16 0445 Imaging Last Impressions Pelvis X-Ray 08/26/16 1107 Signed Impressions: Service Date/Time: Friday, August 26, 2016 12:22 - CONCLUSION: No acute disease. Juan Carlos Dobson Jr., MD Head CT 08/26/161106 Signed Impressions: Service Date/Time: Friday, August 26, 2016 11:46 - CONCLUSION: Normal examination for a patient of this age. Artur Batista MD Chest X-Ray 08/26/161106 Signed Impressions: Service Date/Time: Friday, August 26, 2016 12:17 - CONCLUSION: Mild cardiomegaly. Clear lungs. Juan Carlos Dobson Jr., MD Ribs X-Ray 08/26/16 0000 Signed Impressions: Service Date/Time: Friday, August 26, 2016 21:02 - CONCLUSION: Negative exam with no visualized rib fracture or pneumothorax. Maximus Vazquez MD Knee X-Ray 08/26/16 0000 Signed Impressions: Service Date/Time: Friday, August 26, 2016 12:23 - CONCLUSION: Total hip prosthesis without acute abnormality. Juan Carlos Dobson Jr., MD Objective Remarks GENERAL: This is a well-nourished, well-developed patient, in no apparent distress. CARDIOVASCULAR: sound regular rate and rhythm no murmurs on exam. RESPIRATORY: Clear to auscultation. Breath sounds equal bilaterally. No wheezes GASTROINTESTINAL: Abdomen soft, non-tender, nondistended. MUSCULOSKELETAL: Extremities without edema. NEUROLOGICAL: Awake and alert. Cranial nerves II through XII intact. Motor and sensory grossly within normal limits. Normal speech. A/P Assessment and Plan 81-year-old female presenting with 81 years old very active dynamic lady New onset atrial fibrillation, converted to sinus rhythm off Cardizem drip. Monitor in telemetry. TSH normal. 2-D echo shows EF 60-65%. on 24-hour Holter Cardiology following- pt started on xarelto off Heparin drip CXR, EKGs reviewed. reviewed TELE, appears to be normal sinus History of hypertension. BPs much improved w new dosage of lisinopril 20 mg by mouth daily. IV Vasotec when necessary for SBP >160. hold off on starting BB due to bradycardia Status post fall with right rib cage pain- tender. xrays of rib neg for pneumothorax or rib fx. Encouraged use Incentive spirometry hourly and ordered IS History of generalized anxiety disorder. Continue on Lexapro 50 mg every morning Ativan at bedtime when necessary. History of OA-Chronic OA pain on Meloxicam/Tramadaol as OP. Ultracet prn here [facility]- BiPAP- consult RT for BIPAP use HS. Discharge Planning awaiting final recs Sandee Sibley MD Aug 28, 2016 12:26
[2016-08-28 12:54] LABS: HEMATOCRIT 36.4 % (35.0-46.0); REVIEW FLAG FINAL
--- NOTE | 2016-08-28 15:49 | PD.CARD.PN ---
Subjective Subjective Remarks No CP or SOB, tele w recurrent AF w increased VR Objective Medications Current Medications Medications (Trade) Dose Ordered Sig/Jt Route Start Time Stop Time Status Last Admin (NS Flush) 2 ml UNSCH PRN IVF 08/26/16 11:15 (ZyrTEC) 10 mg DAILY PO 08/27/16 09:00 08/28/16 09:03 (Vitamin D3) 2,000 units DAILY PO 08/27/16 09:00 08/28/16 09:02 (Lexapro) 10 mg DAILY PO 08/26/16 16:15 08/28/16 09:02 (Lactinex) 1 tab DAILY PO 08/27/16 09:00 08/28/16 09:03 (Mag-Ox) 400 mg DAILY PO 08/26/16 16:15 08/28/16 09:03 (Protonix) 20 mg DAILY PO 08/27/16 09:00 08/28/16 09:03 Enalaprilat 1.25 mg 1.25 mg Q6H PRN IV PUSH 08/26/16 18:15 (Cardizem Inj/NS Inj) 125 ml @ 0 mls/hr TITRATE PRN IV 08/26/16 18:45 (Ultracet 37.5-325 Mg) 1 tab Q4H PRN PO 08/26/16 20:00 08/28/16 14:11 (Ativan) 0.5 mg HS PRN PO 08/26/16 19:00 (Prinivil) 20 mg DAILY PO 08/28/16 09:00 08/28/16 09:03 (Xarelto) 20 mg DAILY PO 08/27/16 13:15 08/28/16 09:04 Vital Signs / I&O Vital Signs Date Time Temp Pulse Resp B/P Pulse Ox O2 Delivery O2 Flow Rate FiO2 08/28/16 15:34 16 08/28/16 12:00 98.2 106 18 124/75 95 08/28/16 12:00 95 Room Air 08/28/16 08:00 88 08/28/16 08:00 97.8 67 18 176/82 94 08/28/16 08:00 95 Room Air 08/28/16 07:10 60 08/28/16 06:00 57 08/28/16 05:00 60 08/28/16 04:00 60 08/28/16 03:20 97.8 61 16 145/82 96 08/28/16 03:20 97 Bi-Pap 08/28/16 03:00 59 08/28/16 02:00 60 08/28/16 01:00 59 08/28/16 00:00 56 08/27/16 23:20 94 Bi-Pap 08/27/16 23:20 97.4 64 18 156/80 94 08/27/16 23:00 64 08/27/16 22:00 58 08/27/16 21:00 64 08/27/16 20:00 70 08/27/16 19:41 97 Nasal Cannula 2.00 08/27/16 19:40 98.6 64 18 135/73 89 08/27/16 19:40 89 Room Air 08/27/16 19:00 68 08/27/16 18:00 71 08/27/16 17:00 68 08/27/16 16:00 64 I/O 08/27/16 08/27/16 08/27/16 08/28/16 08/28/16 08/28/16 07:00 15:00 23:00 07:00 15:00 23:00 Intake Total 306 ml 930 ml 480 ml Output Total 500 ml 1250 ml 1100 ml Balance -194 ml -320 ml -620 ml Intake Oral 240 ml 930 ml 480 ml IV Total 66 ml 0 ml Output Urine Total 500 ml 1250 ml 1100 ml # Voids 4 # Bowel Movements 0 0 1 Physical Exam GENERAL: In NAD SKIN: Warm and dry. HEAD: Normocephalic. EYES: No scleral icterus. No injection or drainage. NECK: Supple, trachea midline. No JVD or lymphadenopathy. CARDIOVASCULAR: Regular rate and rhythm without murmurs, gallops, or rubs. RESPIRATORY: Breath sounds equal bilaterally. No accessory muscle use. GASTROINTESTINAL: Abdomen soft, non-tender, nondistended. MUSCULOSKELETAL: No cyanosis, or edema. Laboratory Laboratory Tests Test 08/28/16 12:38 Hemoglobin 11.4 GM/DL Hematocrit 36.4 % Imaging Last Impressions Pelvis X-Ray 08/26/161106 Signed Impressions: Service Date/Time: Friday, August 26, 2016 12:22 - CONCLUSION: No acute disease. Juan Carlos Dobson Jr., MD Head CT 6/7/17 1107 Signed Impressions: Service Date/Time: Friday, August 26, 2016 11:46 - CONCLUSION: Normal examination for a patient of this age. Artur Batista MD Chest X-Ray 08/26/161106 Signed Impressions: Service Date/Time: Friday, August 26, 2016 12:17 - CONCLUSION: Mild cardiomegaly. Clear lungs. Juan Carlos Dobson Jr., MD Ribs X-Ray 08/26/16 0000 Signed Impressions: Service Date/Time: Friday, August 26, 2016 21:02 - CONCLUSION: Negative exam with no visualized rib fracture or pneumothorax. Maximus Vazquez MD Knee X-Ray 08/26/16 0000 Signed Impressions: Service Date/Time: Friday, August 26, 2016 12:23 - CONCLUSION: Total hip prosthesis without acute abnormality. Juan Carlos Dobson Jr., MD Assessment and Plan Problem List: (1) Atrial fibrillation with RVR (2) HTN (hypertension) (3) Fall Assessment and Plan Recurrent a fib w increased VR. Continue anticoagulation with Xarelto. Add Multaq for maintenance of SR. Continue monitoring on tele. Increase activity. Problem Qualifiers (1) Fall: Qualified Code: W19.XXXA - Fall, initial encounter Grace Becker MD Aug 28, 2016 15:48
[2016-08-28] MEDS: DRONEDARONE 400 MG TAB PO SCH (17:38)
[2016-08-29] VITALS (31 sets, daily range): BP systolic 119–150; BP diastolic 67–94; PULSE 51–100; RESP 15–17; TEMP 98–98.4; O2SAT 94–97
[2016-08-29] MEDS: PANTOPRAZOLE SOD 20 MG DELAYED RELEASE TAB PO SCH (08:50)
[2016-08-29] MEDS: DRONEDARONE 400 MG TAB PO SCH ×2 (08:50→18:22)
[2016-08-29] MEDS: LACTOBACILLUS ACIDOPHILUS TAB PO SCH ×2 (08:50→08:58)
[2016-08-29] MEDS: CETIRIZINE HCL 10 MG TAB PO SCH (08:50)
[2016-08-29] MEDS: CHOLECALCIFEROL (VIT D3) 1000 UNIT TAB PO SCH (08:51)
[2016-08-29] MEDS: ESCITALOPRAM OXALATE 10 MG TAB PO SCH (08:51)
[2016-08-29] MEDS: MAGNESIUM OXIDE 400 MG TAB PO SCH ×2 (08:51→21:26)
[2016-08-29] MEDS: traMADol/ACETAMINOPHEN 37.5/325 1 TAB PO PRN ×3 (08:51→21:25)
[2016-08-29] MEDS: RIVAROXABAN 20 MG TAB PO SCH (08:51)
[2016-08-29] MEDS: LISINOPRIL 10 MG TAB PO SCH (08:52)
--- NOTE | 2016-08-29 10:46 | HHI.PR ---
Subjective Remarks Not feeling well today. She became short of breath and lightheaded after moving from the bed to the chair. HR still uncontrolled. Goes up to the 140s with minimal activities. She denies chest pain. Objective Vitals Vital Signs Date Time Temp Pulse Resp B/P Pulse Ox O2 Delivery O2 Flow Rate FiO2 08/29/16 10:00 78 08/29/16 09:51 20 08/29/16 09:27 94 21 08/29/16 09:00 88 08/29/16 08:00 98 08/29/16 08:00 98.4 79 16 145/94 97 08/29/16 07:51 96 Room Air 08/29/16 07:00 72 08/29/16 06:33 77 08/29/16 05:21 100 08/29/16 04:07 79 08/29/16 03:20 98.3 79 16 130/77 97 08/29/16 03:20 97 Room Air 08/29/16 03:10 84 08/29/16 02:15 94 08/29/16 01:00 84 08/29/16 00:15 93 08/28/16 23:25 97.8 90 16 138/88 96 08/28/16 23:25 77 08/28/16 23:25 96 Room Air 08/28/16 22:00 98 08/28/16 21:00 103 08/28/16 20:20 116 08/28/16 20:20 98.7 109 16 134/93 94 08/28/16 20:20 94 Room Air 08/28/16 19:47 92 21 08/28/16 18:12 122 08/28/16 17:00 95 Room Air 08/28/16 17:00 112 08/28/16 16:45 97.9 109 16 146/99 95 08/28/16 16:00 112 08/28/16 15:35 108 08/28/16 15:00 110 08/28/16 14:00 124 08/28/16 13:00 112 08/28/16 12:25 127 08/28/16 12:04 124 08/28/16 12:00 148 08/28/16 12:00 98.2 106 18 124/75 95 08/28/16 12:00 95 Room Air 08/28/16 11:00 70 I/O 08/28/16 08/28/16 08/28/16 08/29/16 08/29/16 08/29/16 07:00 15:00 23:00 07:00 15:00 23:00 Intake Total 480 ml 1200 ml 530 ml Output Total 1100 ml 800 ml 1200 ml Balance -620 ml 400 ml -670 ml Intake Oral 480 ml 1200 ml 530 ml IV Total 0 ml Output Urine Total 1100 ml 800 ml 1200 ml # Bowel Movements 1 1 0 Result Diagram: 08/28/16 1238 08/27/16 0445 Imaging Last Impressions Pelvis X-Ray 08/26/161106 Signed Impressions: Service Date/Time: Friday, August 26, 2016 12:22 - CONCLUSION: No acute disease. Juan Carlos Dobson Jr., MD Head CT 08/26/161106 Signed Impressions: Service Date/Time: Friday, August 26, 2016 11:46 - CONCLUSION: Normal examination for a patient of this age. Artur Batista MD Chest X-Ray 08/26/161106 Signed Impressions: Service Date/Time: Friday, August 26, 2016 12:17 - CONCLUSION: Mild cardiomegaly. Clear lungs. Juan Carlos Dobson Jr., MD Ribs X-Ray 08/26/16 0000 Signed Impressions: Service Date/Time: Friday, August 26, 2016 21:02 - CONCLUSION: Negative exam with no visualized rib fracture or pneumothorax. Maximus Vazquez MD Knee X-Ray 08/26/16 0000 Signed Impressions: Service Date/Time: Friday, August 26, 2016 12:23 - CONCLUSION: Total hip prosthesis without acute abnormality. Juan Carlos Dobson Jr., MD Objective Remarks GENERAL: This is a well-nourished, well-developed patient, in no apparent distress. CARDIOVASCULAR: Rate in the 90s. Irregular rhythm. No murmurs appreciated. RESPIRATORY: Clear to auscultation. Breath sounds equal bilaterally. No wheezes GASTROINTESTINAL: Abdomen soft, non-tender, nondistended. MUSCULOSKELETAL: Extremities without edema. NEUROLOGICAL: Awake and alert. Cranial nerves II through XII intact. Motor and sensory grossly within normal limits. Normal speech. A/P Assessment and Plan 81-year-old female presenting with New onset atrial fibrillation, persistent A. fib with RVR. off Cardizem drip. Rate goes up with minimal activities. Discussed with RN to notify cardiology to titrate medications. Monitor in telemetry. TSH normal. 2-D echo shows EF 60-65%. on 24-hour Holter Cardiology following- pt started on xarelto History of hypertension. BPs much improved w new dosage of lisinopril 20 mg by mouth daily. IV Vasotec when necessary for SBP >160. hold off on starting BB due to bradycardia Status post fall with right rib cage pain- tender. xrays of rib neg for pneumothorax or rib fx. Encouraged use Incentive spirometry hourly and ordered IS History of generalized anxiety disorder. Continue on Lexapro 50 mg every morning Ativan at bedtime when necessary. History of OA-Chronic OA pain on Meloxicam/Tramadaol as OP. Ultracet prn here [facility]- BiPAP-at night. Rox Ward MD Aug 29, 2016 10:46
--- NOTE | 2016-08-29 16:59 | PD.CARD.PN ---
Subjective Subjective Remarks No CP or SOB, episode of dizziness and lightheadedness this AM, BP and HR was nl Objective Medications Current Medications Medications (Trade) Dose Ordered Sig/Jt Route Start Time Stop Time Status Last Admin (NS Flush) 2 ml UNSCH PRN IVF 08/26/16 11:15 (ZyrTEC) 10 mg DAILY PO 08/27/16 09:00 08/29/16 08:50 (Vitamin D3) 2,000 units DAILY PO 08/27/16 09:00 08/29/16 08:51 (Lexapro) 10 mg DAILY PO 08/26/16 16:15 08/29/16 08:51 (Lactinex) 1 tab DAILY PO 08/27/16 09:00 08/28/16 09:03 (Mag-Ox) 400 mg DAILY PO 08/26/16 16:15 08/28/16 22:33 (Protonix) 20 mg DAILY PO 08/27/16 09:00 08/29/16 08:50 Enalaprilat 1.25 mg 1.25 mg Q6H PRN IV PUSH 08/26/16 18:15 (Cardizem Inj/NS Inj) 125 ml @ 0 mls/hr TITRATE PRN IV 08/26/16 18:45 (Ultracet 37.5-325 Mg) 1 tab Q4H PRN PO 08/26/16 20:00 08/29/16 14:52 (Ativan) 0.5 mg HS PRN PO 08/26/16 19:00 (Prinivil) 20 mg DAILY PO 08/28/16 09:00 08/29/16 08:52 (Xarelto) 20 mg DAILY PO 08/27/16 13:15 08/29/16 08:51 (Multaq) 400 mg BIDPC PO 08/28/16 18:00 08/29/16 08:50 Vital Signs / I&O Vital Signs Date Time Temp Pulse Resp B/P Pulse Ox O2 Delivery O2 Flow Rate FiO2 08/29/16 15:49 95 Room Air 08/29/16 15:48 98.2 79 16 138/84 97 08/29/16 15:00 80 08/29/16 14:00 78 08/29/16 13:00 77 08/29/16 12:00 78 08/29/16 12:00 95 Room Air 08/29/16 12:00 98.2 79 16 138/84 97 08/29/16 11:00 81 08/29/16 10:00 78 08/29/16 09:51 20 08/29/16 09:27 94 21 08/29/16 09:00 88 08/29/16 08:00 98 08/29/16 08:00 98.4 79 16 145/94 97 08/29/16 07:51 96 Room Air 08/29/16 07:00 72 08/29/16 06:33 77 08/29/16 05:21 100 08/29/16 04:07 79 08/29/16 03:20 98.3 79 16 130/77 97 08/29/16 03:20 97 Room Air 08/29/16 03:10 84 08/29/16 02:15 94 08/29/16 01:00 84 08/29/16 00:15 93 08/28/16 23:25 97.8 90 16 138/88 96 08/28/16 23:25 77 08/28/16 23:25 96 Room Air 08/28/16 22:00 98 08/28/16 21:00 103 08/28/16 20:20 116 08/28/16 20:20 98.7 109 16 134/93 94 08/28/16 20:20 94 Room Air 08/28/16 19:47 92 21 08/28/16 18:12 122 08/28/16 17:00 95 Room Air 08/28/16 17:00 112 I/O 08/28/16 08/28/16 08/28/16 08/29/16 08/29/16 08/29/16 07:00 15:00 23:00 07:00 15:00 23:00 Intake Total 480 ml 1200 ml 530 ml Output Total 1100 ml 800 ml 1200 ml Balance -620 ml 400 ml -670 ml Intake Oral 480 ml 1200 ml 530 ml IV Total 0 ml Output Urine Total 1100 ml 800 ml 1200 ml # Bowel Movements 1 1 0 Physical Exam GENERAL: In NAD SKIN: Warm and dry. HEAD: Normocephalic. EYES: No scleral icterus. No injection or drainage. NECK: Supple, trachea midline. No JVD or lymphadenopathy. CARDIOVASCULAR: Regular rate and rhythm without murmurs, gallops, or rubs. RESPIRATORY: Breath sounds equal bilaterally. No accessory muscle use. GASTROINTESTINAL: Abdomen soft, non-tender, nondistended. MUSCULOSKELETAL: No cyanosis, or edema. Laboratory Laboratory Tests Test 08/26/16 08/26/16 08/26/16 08/27/16 11:15 19:48 21:50 04:45 Neutrophils (%) (Auto) 81.1 % Lymphocytes (%) (Auto) 10.0 % Monocytes (%) (Auto) 7.7 % Eosinophils (%) (Auto) 0.7 % Basophils (%) (Auto) 0.5 % Neutrophils # (Auto) 7.3 TH/MM3 Lymphocytes # (Auto) 0.9 TH/MM3 Monocytes # (Auto) 0.7 TH/MM3 Eosinophils # (Auto) 0.1 TH/MM3 Basophils # (Auto) 0.0 TH/MM3 CBC Comment DIFF FINAL Differential Comment Thyroid Stimulating Hormone 0.719 uIU/ML 3rd Gen Blood Type O POSITIVE Antibody Screen NEGATIVE Blood Bank Comment White Blood Count 9.0 TH/MM3 Red Blood Count 4.51 MIL/MM3 Mean Corpuscular Volume 79.0 FL Mean Corpuscular Hemoglobin 25.5 PG Mean Corpuscular Hemoglobin 32.3 % Concent Red Cell Distribution Width 16.9 % Platelet Count 259 TH/MM3 Mean Platelet Volume 8.0 FL Prothrombin Time 10.7 SEC Prothromb Time International 1.0 RATIO Ratio Urine Opiates Screen NEG Urine Barbiturates Screen NEG Urine Amphetamines Screen NEG Urine Benzodiazepines Screen NEG Urine Cocaine Screen NEG Urine Cannabinoids Screen NEG Activated Partial 38.3 SEC Thromboplast Time Sodium Level 141 MEQ/L Potassium Level 3.5 MEQ/L Chloride Level 105 MEQ/L Carbon Dioxide Level 27.7 MEQ/L Anion Gap 8 MEQ/L Blood Urea Nitrogen 19 MG/DL Creatinine 0.79 MG/DL Estimat Glomerular Filtration 70 ML/MIN Rate Random Glucose 84 MG/DL Calcium Level 8.6 MG/DL Total Bilirubin 0.4 MG/DL Aspartate Amino Transf 13 U/L (AST/SGOT) Alanine Aminotransferase 14 U/L (ALT/SGPT) Alkaline Phosphatase 70 U/L Total Protein 6.9 GM/DL Albumin 3.4 GM/DL Test 08/28/16 12:38 Hemoglobin 11.4 GM/DL Hematocrit 36.4 % Imaging Last Impressions Pelvis X-Ray 08/26/16 1107 Signed Impressions: Service Date/Time: Friday, August 26, 2016 12:22 - CONCLUSION: No acute disease. Juan Carlos Dobson Jr., MD Head CT 08/26/16 1107 Signed Impressions: Service Date/Time: Friday, August 26, 2016 11:46 - CONCLUSION: Normal examination for a patient of this age. Artur Batista MD Chest X-Ray 08/26/16 1107 Signed Impressions: Service Date/Time: Friday, August 26, 2016 12:17 - CONCLUSION: Mild cardiomegaly. Clear lungs. Juan Carlos Dobson Jr., MD Ribs X-Ray 08/26/16 0000 Signed Impressions: Service Date/Time: Friday, August 26, 2016 21:02 - CONCLUSION: Negative exam with no visualized rib fracture or pneumothorax. Maximus Vazquez MD Knee X-Ray 08/26/16 0000 Signed Impressions: Service Date/Time: Friday, August 26, 2016 12:23 - CONCLUSION: Total hip prosthesis without acute abnormality. Juan Carlos Dobson Jr., MD Assessment and Plan Problem List: (1) Atrial fibrillation with RVR (2) HTN (hypertension) (3) Fall Assessment and Plan Back in SR, continue antiarrhythmic tx w Multaq. Continue anticoagulation with Xarelto. Continue monitoring on tele. Increase activity. D/w pt and family. Problem Qualifiers (1) Fall: Qualified Code: W19.XXXA - Fall, initial encounter Grace Becker MD Aug 29, 2016 16:59
[2016-08-30] VITALS (17 sets, daily range): BP systolic 113–150; BP diastolic 54–87; PULSE 56–79; RESP 15; TEMP 98.2–98.4; O2SAT 94–100
[2016-08-30] MEDS: traMADol/ACETAMINOPHEN 37.5/325 1 TAB PO PRN (08:52)
[2016-08-30] MEDS: PANTOPRAZOLE SOD 20 MG DELAYED RELEASE TAB PO SCH (08:53)
[2016-08-30] MEDS: DRONEDARONE 400 MG TAB PO SCH (08:53)
[2016-08-30] MEDS: RIVAROXABAN 20 MG TAB PO SCH (08:53)
[2016-08-30] MEDS: CHOLECALCIFEROL (VIT D3) 1000 UNIT TAB PO SCH (08:54)
[2016-08-30] MEDS: CETIRIZINE HCL 10 MG TAB PO SCH (08:54)
[2016-08-30] MEDS: ESCITALOPRAM OXALATE 10 MG TAB PO SCH (08:55)
[2016-08-30] MEDS: LISINOPRIL 10 MG TAB PO SCH (08:55)
[2016-08-30] MEDS: LACTOBACILLUS ACIDOPHILUS TAB PO SCH (08:56)
[2016-08-30 10:10] LABS: BICARBONATE 28.6 MEQ/L (21.0-32.0); POTASSIUM 4.9 MEQ/L (3.5-5.1)
--- NOTE | 2016-08-30 10:16 | HM ---
Date Performed: 08/27/2016 Time Performed: 10:23:00 HOOKUP DATE: 08/27/16 10:23:00 AM Nisreen ANALYSIS START TIME: 08/27/2016 10:28:00 AM ANALYSIS END TIME: 08/28/2016 10:22:59 AM PATIENT AGE: 81 PATIENT HEIGHT PATIENT WEIGHT DRUG LIST PATIENT DIAGNOSIS: AFIB W RVR TEST NARRATIVE: The patient's average heart rate was 67 BPM. No episodes of tachycardia wer e noted. No episodes of bradycardia were noted. No pauses exceeding 2.0 seconds were noted. 4 ventricular ectopics, which represented < 1% of the total beat count, were noted. The highest vent ricular ectopic frequency occurred from 11:00 AM to 12:00 PM Nisreen. During this time 2 VE(s) occurred. Ventricular ectopics were observed as 4 isolated beat(s) only. No couplets or runs were noted. 7 supraventricular ectopics, which represented < 1% of the total beat count, were noted. The highes t supraventricular ectopic frequency occurred from 09:00 PM to 10:00 PM Nisreen. During this time 3 SVE( s) occurred. No episodes of ST depression (defined as -1.0 mm or more) were noted in channel 1. No episodes of ST depression (defined as -1.0 mm or more) were noted in channel 2. No episodes of ST depression (defined as -1.0 mm or more) were noted in channel 3. TEST INTERPRETATION: Sinus rhythm RARE PVCs OCCASIONAL PACs AND SHORT ATRIAL RUNS Signed by : Bharathi Giraldo
[2016-08-30] MEDS ORDERED: XARE20TA PO (11:34)
[2016-08-30] MEDS ORDERED: MULT400T PO (11:34)
--- NOTE | 2016-08-30 11:35 | HHI.DCPOC ---
Discharge Care Plan Diagnosis: (1) Atrial fibrillation with RVR (2) HTN (hypertension) (3) Fall Goals to Promote Your Health * To prevent worsening of your condition and complications * To maintain your health at the optimal level Directions to Meet Your Goals Take your medications as prescribed Follow your dietary instruction Follow activity as directed Keep your appointments as scheduled Take your immunizations and boosters as scheduled If your symptoms worsen call your PCP, if no PCP go to Urgent Care Center or Emergency Room Smoking is Dangerous to Your Health. Avoid second hand smoke Call the 24-hour hour crisis hotline for domestic abuse at Rox Ward MD Aug 30, 2016 11:35
--- NOTE | 2016-08-30 11:36 | HHI.DS ---
Discharge Summary Admission Date Aug 26, 2016 at 13:28 Discharge Date: Aug 30, 2016 Admitting Diagnosis afib with rvr (1) Atrial fibrillation with RVR ICD Code: I48.91 (2) HTN (hypertension) ICD Code: I10 (3) Fall ICD Code: W19.XXXA Procedures None Brief History - From Admission HPI from the admitting physician Patient is a very pleasant 81-year-old female with history of hypertension, still very active lifestyle and independent quality of life, , with history generalized anxiety disorder who this morning went to [place] for his annual physical checkup when on evaluation noted a heart rate was elevated and was noted to be in rapid atrial fibrillation. Patient was basically asymptomatic except for some "queasy feeling in the stomach" . Incidentally patient fell last night - tripped on something on the ground. complained of pain right side of the body and hip her hand and knee. Denies any syncopal episodes dizziness chest pain shortness of breath prior to or after the episode. Patient was sent over here where an EKG confirms atrial fibrillation in RVR. With right bundle branch block. Patient was given Cardizem bolus and started on a drip of 15 mg per hour and patient spontaneously went into sinus rhythm. admitted for further evaluation On telemetry Heart rate was noted to be be in the 40s and 50s a fib - some strip into SR - then with interrmittent slow A. fib. We will discontinue drip and admit for further evaluation and observation management. No history of GI bleeding. or spontaenous bleed, no history of CVA, GIB No chest pains or shortness of breath CBC/BMP: 08/28/16 1238 08/30/16 0828 Significant Findings Laboratory Tests Test 08/28/16 08/30/16 12:38 08:28 Hemoglobin 11.4 GM/DL (11.6-15.3) Blood Urea Nitrogen 23 MG/DL (7-18) Creatinine 1.03 MG/DL (0.50-1.00) Estimat Glomerular Filtration 51 ML/MIN (>89) Rate Imaging Last Impressions Pelvis X-Ray 6/7/17 1107 Signed Impressions: Service Date/Time: Friday, August 26, 2016 12:22 - CONCLUSION: No acute disease. Juan Carlos Dobson Jr., MD Head CT 08/26/161106 Signed Impressions: Service Date/Time: Friday, August 26, 2016 11:46 - CONCLUSION: Normal examination for a patient of this age. Artur Batista MD Chest X-Ray 08/26/161106 Signed Impressions: Service Date/Time: Friday, August 26, 2016 12:17 - CONCLUSION: Mild cardiomegaly. Clear lungs. Juan Carlos Dobson Jr., MD Ribs X-Ray 08/26/16 0000 Signed Impressions: Service Date/Time: Friday, August 26, 2016 21:02 - CONCLUSION: Negative exam with no visualized rib fracture or pneumothorax. Maximus Vazquez MD Knee X-Ray 08/26/16 0000 Signed Impressions: Service Date/Time: Friday, August 26, 2016 12:23 - CONCLUSION: Total hip prosthesis without acute abnormality. Juan Carlos Dobson Jr., MD PE at Discharge GENERAL: This is a well-nourished, well-developed patient, in no apparent distress. CARDIOVASCULAR: Rate in the 90s. Irregular rhythm. No murmurs appreciated. RESPIRATORY: Clear to auscultation. Breath sounds equal bilaterally. No wheezes GASTROINTESTINAL: Abdomen soft, non-tender, nondistended. MUSCULOSKELETAL: Extremities without edema. NEUROLOGICAL: Awake and alert. Cranial nerves II through XII intact. Motor and sensory grossly within normal limits. Normal speech. Pt update on day of discharge Patient reports she is feeling much better. No shortness of breath, chest pain , or heart palpitations. Heart rate has been controlled since yesterday evening. Remain in sinus rhythm. Hospital Course 81-year-old female presenting with new onset atrial fibrillation with RVR. Patient initially treated with Cardizem drip. She was followed by cardiology. She was started on Multaq and Xarelto. Patient went back to sinus rhythm. 2-D echo shows LVEF of 60-65%. TSH within normal limits. Patient stabilized and cleared for discharge. I discussed with cardiology on the day of discharge. Patient advised to follow-up with cardiology outpatient through the [place] or her primary care physician. Other conditions treated include: History of hypertension. Treated with lisinopril. Continue home dose on discharge. Status post fall with right rib cage pain- tender. xrays of rib neg for pneumothorax or rib fx. Encouraged use Incentive spirometry hourly and ordered IS. Pain control as needed. History of generalized anxiety disorder. Continue on Lexapro 50 mg every morning Ativan at bedtime when necessary. History of OA-Chronic OA pain on Meloxicam/Tramadaol as OP. KELLEY- BiPAP-at night. Pt Condition on Discharge: Good Discharge Disposition: Discharge Home Discharge Time: <= 30 minutes Discharge Instructions DIET: Follow Instructions for: Heart Healthy Diet Activities you can perform: Regular-No Restrictions Follow up Referrals: Cardiology - 1 Week PCP Follow-up New Medications: Dronedarone (Multaq) 400 Mg Tab 400 MG PO BIDPC #60 TAB Rivaroxaban (Xarelto) 20 Mg Tab 20 MG PO DAILY #30 TAB Continued Medications: Cetirizine (Cetirizine) 10 Mg Tab 10 MG PO DAILY Allergies Ref 0 TAB Cholecalciferol (D3 Super Strength) 2,000 Unit Cap 2000 UNITS PO DAILY Nutritional Supplement #30 Ref 0 CAP Coenzyme Q10 (Ubidecarenone) (Coq-10) 30 Mg Cap Escitalopram (Lexapro) 10 Mg Tab 10 MG PO DAILY #30 Ref 0 TAB Lactobacillus Acidophilus (Probiotic) 1 Cap Cap 1 CAP PO DAILY Nutritional Supplement #90 Ref 0 CAP Lisinopril (Lisinopril) 10 Mg Tab 10 MG PO DAILY #30 Ref 0 TAB Lutein (Lutein) 6 Mg Cap 6 MG PO DAILY Nutritional Supplement Ref 0 CAP Magnesium (Magnesium) 400 Mg Tab 500 MG PO DAILY Nutritional Supplement Ref 0 TAB Omeprazole (Omeprazole) 20 Mg Tab 20 MG PO DAILY #30 Ref 0 TAB Tramadol (Tramadol) 50 Mg Tab 50 MG PO Q8H PRN PAIN Ref 0 TAB Rox Ward MD Aug 30, 2016 11:36
--- NOTE | 2016-08-30 15:39 | PD.CARD.PN ---
Subjective Subjective Remarks No CP or SOB, stays in SR Objective Vital Signs / I&O Vital Signs Date Time Temp Pulse Resp B/P Pulse Ox O2 Delivery O2 Flow Rate FiO2 08/30/16 13:00 79 08/30/16 12:00 72 08/30/16 11:22 98.2 59 15 136/76 100 08/30/16 11:21 94 Room Air 08/30/16 11:00 63 08/30/16 10:00 75 08/30/16 09:52 20 08/30/16 09:00 71 08/30/16 08:34 94 21 08/30/16 08:00 56 08/30/16 08:00 98.4 59 15 150/87 100 08/30/16 07:36 94 Room Air 08/30/16 07:00 57 08/30/16 06:02 58 08/30/16 05:58 58 08/30/16 04:11 64 08/30/16 03:24 98.2 59 15 113/54 96 08/30/16 03:24 96 Room Air 08/30/16 03:00 58 08/30/16 02:00 58 08/30/16 01:00 60 08/30/16 00:00 61 08/29/16 23:18 98.0 61 15 138/67 96 08/29/16 23:18 96 Room Air 08/29/16 23:00 61 08/29/16 22:00 60 08/29/16 21:00 66 08/29/16 20:00 70 08/29/16 19:24 98.2 72 17 143/72 94 08/29/16 19:24 94 Room Air 08/29/16 19:00 69 08/29/16 18:31 150/70 08/29/16 18:29 76 08/29/16 18:00 51 08/29/16 17:00 80 08/29/16 16:00 70 08/29/16 15:49 95 Room Air 08/29/16 15:48 98.2 79 16 119/76 97 I/O 08/29/16 08/29/16 08/29/16 08/30/16 08/30/16 08/30/16 07:00 15:00 23:00 07:00 15:00 23:00 Intake Total 530 ml 1025 ml 240 ml 525 ml Output Total 1200 ml 980 ml 600 ml 450 ml Balance -670 ml 45 ml -360 ml 75 ml Intake Oral 530 ml 1025 ml 240 ml 525 ml Output Urine Total 1200 ml 980 ml 600 ml 450 ml # Bowel Movements 0 0 0 0 Physical Exam GENERAL: In NAD SKIN: Warm and dry. HEAD: Normocephalic. EYES: No scleral icterus. No injection or drainage. NECK: Supple, trachea midline. No JVD or lymphadenopathy. CARDIOVASCULAR: Regular rate and rhythm without murmurs, gallops, or rubs. RESPIRATORY: Breath sounds equal bilaterally. No accessory muscle use. GASTROINTESTINAL: Abdomen soft, non-tender, nondistended. MUSCULOSKELETAL: No cyanosis, or edema. Laboratory Laboratory Tests Test 08/30/16 08:28 Sodium Level 143 MEQ/L Potassium Level 4.9 MEQ/L Chloride Level 107 MEQ/L Carbon Dioxide Level 28.6 MEQ/L Anion Gap 7 MEQ/L Blood Urea Nitrogen 23 MG/DL Creatinine 1.03 MG/DL Estimat Glomerular Filtration 51 ML/MIN Rate Random Glucose 89 MG/DL Calcium Level 9.1 MG/DL Imaging Last Impressions Pelvis X-Ray 08/26/161106 Signed Impressions: Service Date/Time: Friday, August 26, 2016 12:22 - CONCLUSION: No acute disease. Juan Carlos Dobson Jr., MD Head CT 08/26/161106 Signed Impressions: Service Date/Time: Friday, August 26, 2016 11:46 - CONCLUSION: Normal examination for a patient of this age. Artur Batista MD Chest X-Ray 08/26/16 110 Signed Impressions: Service Date/Time: Friday, August 26, 2016 12:17 - CONCLUSION: Mild cardiomegaly. Clear lungs. Juan Carlos Dobson Jr., MD Ribs X-Ray 08/26/16 0000 Signed Impressions: Service Date/Time: Friday, August 26, 2016 21:02 - CONCLUSION: Negative exam with no visualized rib fracture or pneumothorax. Maximus Vazquez MD Knee X-Ray 08/26/16 0000 Signed Impressions: Service Date/Time: Friday, August 26, 2016 12:23 - CONCLUSION: Total hip prosthesis without acute abnormality. Juan Carlos Dobson Jr., MD Assessment and Plan Problem List: (1) Atrial fibrillation with RVR (2) HTN (hypertension) (3) Fall Assessment and Plan Stays in SR, continue antiarrhythmic tx w Multaq. Continue anticoagulation with Xarelto. Discharge home. F/u w [employer] [facility] within 2 weeks. D/w pt and partner. Problem Qualifiers (1) Fall: Qualified Code: W19.XXXA - Fall, initial encounter Grace Becker MD Aug 30, 2016 15:39
[2016-08-30] MEDS ORDERED: MAGNESIUM OXIDE 400 MG TAB PO SCH (21:00)
== END 2016-08-30 15:06 | disposition home or self-care (01) ==
LOC: NEPC 10:29 → INTOOBSV 13:28 → NEDA 13:28 → HCIN 16:34
PROVIDERS: ADMIT Family Medicine; ATTEND Family Medicine
DX: I48.91 Unspecified atrial fibrillation (principal); R07.81 Pleurodynia; M19.90 Unspecified osteoarthritis, unspecified site; I10 Essential (primary) hypertension; E78.00 Pure hypercholesterolemia, unspecified; G47.33 Obstructive sleep apnea (adult) (pediatric); F41.1 Generalized anxiety disorder; Z79.01 Long term (current) use of anticoagulants; Z79.899 Other long term (current) drug therapy; Z87.891 Personal history of nicotine dependence; Z88.0 Allergy status to penicillin
CPT/HCPCS: 70450; 71010; 71100; 72170; 73564; 80048; 80053; 80307; 84443; 85014; 85018; 85025; 85027; 85610; 85730; 86850; 86900; 86901; 93005; 93225; 93226; 93306; 94002; 94003; 94150; 96365; 96375; 96376; 97162; 99291; G0378; G8987; G8988; J1644; J0171; J0461